=== PATIENT | male | born 1975 | race Two or more races ===

== ENCOUNTER 2024-07-04 12:47 | Emergency (ER) | payer OTHER ==
[~2024-07-04] VITALS: Ht 175.3 cm; Wt 80.7 kg
[2024-07-04 13:11] VITALS: BP 130/90; O2SAT 98
[2024-07-04] MEDS ORDERED: KETOROLAC TROMETHAMINE 30 MG VIAL IV STA (13:48)
[2024-07-04] MEDS ORDERED: ORPHENADRINE CITRATE 30 MG/ML AMPUL IV STA (13:48)
[2024-07-04] MEDS ORDERED: KETOROLAC TROMETHAMINE 30 MG VIAL ONE (14:06)
[2024-07-04] MEDS ORDERED: ORPHENADRINE CITRATE 30 MG/ML AMPUL ONE (14:06)
[2024-07-04 14:36] LABS: MEAN CELL VOLUME 88.5 fL (80.0-100.00); MEAN CORPUSCULAR HEMOGLOBIN 29.4 pg (27.00-32.0); MEAN CORPUSCULAR HGB CONC 33.2 g/dl (32.0-36.0); PLATELET COUNT 260 K/uL (150-450); RED BLOOD COUNT 5.09 M/uL (4.00-6.00); RED CELL DISTRIBUTION WIDTH 13.6 % (11.5-14.5)
[2024-07-04 15:06] LABS: ALBUMIN 4.2 gm/dL (3.4-5.0); BILIRUBIN TOTAL 0.49 mg/dL (0.3-1.2); CALCIUM 9.6 mg/dL (8.5-10.1); CREATININE SERUM 0.96 mg/dL (0.70-1.30); GFR 83.25; GLOBULINA 3.9 G/DL (2.4-3.5); POTASSIUM 3.93 mEq/L (3.5-5.1); TOTAL PROTEIN 8.1 gm/dL (6.4-8.2)
[2024-07-04] MEDS ORDERED: DUI500 PO (15:34)
== END 2024-07-04 16:04 | disposition home or self-care (01) ==
LOC: ER 12:50
DX: R53.81 Other malaise (principal); R39.89 Other symptoms and signs involving the genitourinary system; I10 Essential (primary) hypertension